=== PATIENT | male | born 1970 | race African-American/Black ===

== ENCOUNTER → 2022-08-14 | Emergency (ER) | payer OTHER ==
[~2022-08-14] VITALS: Ht 175.3 cm; Wt 79.4 kg
[~2022-08-14] MED LIST: CEPH500C2 PO; HYDR-3976 PO; HYDROMORPHONE 1 MG/1 ML DISP.SYRIN IM ONE; HYDROMORPHONE 1 MG/1 ML DISP.SYRIN ONE; IBUP-1955 PO; LIDOCAINE 0.5% HCL 50 ML VIAL ONE; OXYC-133 PO; TDAP [DIPH/PERTUSSIS/TET] 0.5 ML VIAL IM ONE; TRAM50TA2 PO
--- NOTE | 2022-08-14 11:20 | NUR ---
AT BEDSIDE FOR EVAL
--- NOTE | 2022-08-14 12:11 | NUR ---
XRAY AT BEDSIDE
[2022-08-14 15:42] VITALS: BP 138/80
--- NOTE | 2022-08-14 16:03 | NUR ---
PT D/C HOME. CD GIVEN REQUESTED. PT TO FOLLOW UP WITH PRIMARY PHYSICIAN. PT LEFT IN STABLE CONDITION WITH .
== END | disposition home or self-care (01) ==
LOC: ER 10:55
DX: S62.613B Displaced fracture of proximal phalanx of left middle finger, initial encounter for open fracture (principal); S62.635B Displaced fracture of distal phalanx of left ring finger, initial encounter for open fracture; Z79.899 Other long term (current) drug therapy; W31.89XA Contact with other specified machinery, initial encounter; Y93.89 Activity, other specified; Y92.89 Other specified places as the place of occurrence of the external cause; Y99.0 Civilian activity done for income or pay
CPT/HCPCS: 99284; 12002; 90471; 90715; 73130; 96372; J3490; J1170